=== PATIENT | female | born 1960 | race Caucasian/White ===

== ENCOUNTER 2017-01-30 04:47 | Emergency (ER) | payer OTHER ==
[2017-01-30] MEDS ORDERED: AMOXIL 500 MG PO ONE (05:13)
--- NOTE | 2017-01-30 05:19 | ERPHSYRPT ---
- History of Present Illness Time Seen by Provider: 01/30/17 05:05 Source: patient Exam Limitations: clinical condition Patient Subjective Stated Complaint: sore thrtoat and ear pain since 0100 Triage Nursing Assessment: alert and oriented with c/o sore throat and bilateral ear pain starting at 0100. has hx same every year. non productive cough Physician History: PATIENT COMPLAINS OF SORETHROAT SINCE 1AM TODAY, DENIES ASSOCIATED FEVER OR CHILLS OR DYSPNEA. DENIES DIFFICULTY BREATHING OR SWALLOWING. Timing/Duration: today Cough Quality/Degree: no cough Possible Cause: occasional episodes Modifying Factors: Improves With: nothing Associated Symptoms: denies symptoms International travel in last 2 weeks: No Allergies/Adverse Reactions: No Known Drug Allergies Allergy (Unverified 01/30/17 05:23) - Review of Systems Constitutional: No Fever, No Chills Ears, Nose, & Throat: Throat Pain Respiratory: No Symptoms Cardiac: No Symptoms Abdominal/Gastrointestinal: No Symptoms Genitourinary Symptoms: No Symptoms Musculoskeletal: No Symptoms Psychological: No Symptoms Endocrine: No Symptoms - Past Medical History Pertinent Past Medical History: Yes Neurological History: No Pertinent History Cardiac History: No Pertinent History Respiratory History: No Pertinent History Endocrine Medical History: Diabetes Type II - Past Surgical History Past Surgical History: No - Social History Smoking Status: Never smoker Exposure to second hand smoke: No Drug Use: none Patient Lives Alone: No - Nursing Vital Signs Nursing Vital Signs: Initial Vital Signs Temperature 97.8 F 01/30/17 04:55 Pulse Rate 88 01/30/17 04:55 Respiratory Rate 16 01/30/17 04:55 Blood Pressure 149/97 01/30/17 04:55 O2 Sat by Pulse Oximetry 98 01/30/17 04:55 Pain Scale Pain Intensity 6 - Physical Exam General Appearance: no apparent distress, alert Eye Exam: PERRL/EOMI, eyes nml inspection Ears, Nose, Throat Exam: pharyngeal erythema (NO EXUDATE) Neck Exam: normal inspection, lymphadenopathy Respiratory Exam: normal breath sounds, lungs clear, No respiratory distress Cardiovascular Exam: regular rate/rhythm SpO2 Interpretation: airway management int. SpO2: 98 Oxygen Delivery: Room Air Ordered Tests: Active Orders 24 hr Category Date Time Status CULTURE, THROAT Stat Lab 01/30/17 05:32 Received STREP SCREEN-BETA A Stat Lab 01/30/17 05:32 Completed Medication Summary Discontinued Medications Generic Name Dose Route Start Last Admin Trade Name Waqas PRN Reason Stop Dose Admin Amoxicillin 500 mg 01/30/17 05:13 01/30/17 05:29 Amoxil 500 Mg PO 01/30/17 05:14 500 mg STAT ONE Administration Amoxicillin Confirm 01/30/17 05:28 Amoxil 500 Mg Administered 01/30/17 05:29 Dose 500 mg .ROUTE .STK-MED ONE Lab/Rad Data: Laboratory Results 01/30/17 Range/Units 05:32 Streptococcus Screen NEGATIVE (Negative) - Progress Progress Note: 01/30/17 05:16 ADMINISTERED AMOXICILLIN 500MG ORALLY Counseled pt/family regarding: lab results, diagnosis - Departure Time of Disposition: 05:40 Departure Disposition: Home Clinical Impression: ACUTE PHARYNGITIS Condition: Stable Critical Care Time: No Referrals: MONICO BRIONES [Primary Care Provider] - Additional Instructions: ANTIBIOTIC AUGMENTIN 875MG TWICE DAILY FOR 10 DAYS. TYLENOL OR MOTRIN NEEDED FOR PAIN OR FEVER. CONSULT YOUR PRIMARY CARE PHYSICIAN FOR FOLLOWUP IN 1 WEEK.
[2017-01-30] MEDS ORDERED: AMOXIL 500 MG ONE (05:28)
[2017-01-30 05:46] VITALS: BP 148/78; PULSE 80; O2SAT 99
== END 2017-01-30 05:45 | disposition home or self-care (01) ==
LOC: ED 04:47
DX: J02.9 Acute pharyngitis, unspecified (principal)
CPT/HCPCS: 87070; 87430; 99283; A9270-GY

== ENCOUNTER 2017-11-14 20:31 | Emergency (ER) | payer OTHER ==
--- NOTE | 2017-11-14 21:08 | ERPHSYRPT ---
- History of Present Illness Time Seen by Provider: 11/14/17 21:04 Source: patient, family Exam Limitations: no limitations Patient Subjective Stated Complaint: pt states she has been having a lot of stress recently and called her son nicci to talk. states she said to him that she is stressed and said "i dont know if i should run my car into a ditch or jump off a bridge." pt states she was just trying to vent and has no intention of hurting herself. denies any suicidal ideation or plan. Triage Nursing Assessment: pt arrive with law enforcement, willing. pt alert and oriented. answers questions approp. pt ambulatory with steady gait noted. respirations nonlabored with lungs cta. pt calm and cooperative. Physician History: pt states she has been having a lot of stress recently and called her son nicci to talk. states she said to him that she is stressed and said "i dont know if i should run my car into a ditch or jump off a bridge." pt states she was just trying to vent and has no intention of hurting herself. denies any suicidal ideation or plan. Denies any other symptoms Timing/Duration: today Allergies/Adverse Reactions: No Known Drug Allergies Allergy (Unverified 01/30/17 05:23) Hx Tetanus, Diphtheria Vaccination/Date Given: Yes Hx Influenza Vaccination/Date Given: No Hx Pneumococcal Vaccination/Date Given: No Immunizations Up to Date: Yes - Review of Systems Constitutional: No Fever, No Chills Eyes: No Symptoms Ears, Nose, & Throat: No Symptoms Respiratory: No Cough, No Dyspnea Cardiac: No Chest Pain, No Edema, No Syncope Abdominal/Gastrointestinal: No Abdominal Pain, No Nausea, No Vomiting, No Diarrhea Genitourinary Symptoms: No Dysuria Musculoskeletal: No Back Pain, No Neck Pain Skin: No Rash Neurological: No Dizziness, No Focal Weakness, No Sensory Changes Psychological: Anxiety, Depression, Emotional Lability Endocrine: No Symptoms All Other Systems: Reviewed and Negative - Past Medical History Pertinent Past Medical History: Yes Neurological History: No Pertinent History Cardiac History: No Pertinent History, Hypertension Respiratory History: No Pertinent History Endocrine Medical History: Diabetes Type II - Past Surgical History Past Surgical History: Yes Musculoskeletal: Orthopedic Surgery Female Surgical History: Section - Social History Smoking Status: Never smoker Exposure to second hand smoke: No Drug Use: none Patient Lives Alone: No - Nursing Vital Signs Nursing Vital Signs: Initial Vital Signs Temperature 99.6 F 11/14/17 20:35 Pulse Rate 110 H 11/14/17 20:35 Respiratory Rate 18 11/14/17 20:35 Blood Pressure 189/110 11/14/17 20:35 O2 Sat by Pulse Oximetry 96 11/14/17 20:35 Pain Scale Pain Intensity 4 - Physical Exam General Appearance: no apparent distress, alert Eye Exam: PERRL/EOMI, eyes nml inspection Ears, Nose, Throat Exam: normal ENT inspection, TMs normal, pharynx normal, moist mucous membranes Neck Exam: normal inspection, non-tender, supple, full range of motion Respiratory Exam: normal breath sounds, lungs clear, No respiratory distress Cardiovascular Exam: regular rate/rhythm, normal heart sounds, normal peripheral pulses Gastrointestinal/Abdomen Exam: soft, normal bowel sounds, No tenderness, No mass Back Exam: normal inspection, normal range of motion, No CVA tenderness, No vertebral tenderness Extremity Exam: normal inspection, normal range of motion, pelvis stable Neurologic Exam: alert, oriented x 3, cooperative, normal mood/affect, nml cerebellar function, nml station & gait, sensation nml, No motor deficits Skin Exam: normal color, warm, dry, No rash Lymphatic Exam: No adenopathy SpO2: 96 Oxygen Delivery: Room Air - Course Nursing assessment & vital signs reviewed: Yes Ordered Tests: Active Orders 24 hr Category Date Time Status EKG-ER Only STAT Care 11/14/17 21:08 Active CBC W DIFF Stat Lab 11/14/17 21:23 Completed CMP Stat Lab 11/14/17 21:23 Completed CULTURE,URINE Stat Lab 11/14/17 21:23 Received ETHYL ALCOHOL Stat Lab 11/14/17 21:23 Completed TROPONIN Stat Lab 11/14/17 21:23 Completed UA W/ MICROSCOPIC Stat Lab 11/14/17 21:23 Completed Urine Triage Profile Stat Lab 11/14/17 21:23 Completed Medication Summary Discontinued Medications Generic Name Dose Route Start Last Admin Trade Name Alanq PRN Reason Stop Dose Admin Ciprofloxacin 500 mg 11/14/17 22:00 11/14/17 22:21 Cipro 500 Mg PO 11/14/17 22:01 500 mg STAT ONE Administration Ciprofloxacin Confirm 11/14/17 22:21 Cipro 500 Mg Administered 11/14/17 22:22 Dose 500 mg .ROUTE .STK-MED ONE Lab/Rad Data: Laboratory Result Diagrams 11/14/17 21:23 11/14/17 21:23 Laboratory Results 11/14/17 11/14/17 11/14/17 Range/Units 21:23 21:23 21:23 WBC (4.0-10.5) K/mm3 RBC (4.1-5.4) M/mm3 Hgb (12.0-16.0) gm/dl Hct (35-47) % MCV (78-100) fl MCH (26-32) pg MCHC (32-36) g/dl RDW (11.5-14.0) % Plt Count (150-450) K/mm3 MPV (6-9.5) fl Gran % (36.0-66.0) % Eos # (Auto) (0-0.5) Absolute Lymphs (auto) (1.0-4.6) Absolute Monos (auto) (0.0-1.3) Lymphocytes % (24.0-44.0) % Monocytes % (0.0-12.0) % Eosinophils % (0.00-5.0) % Basophils % (0.0-0.4) % Absolute Granulocytes (1.4-6.9) Basophils # (0-0.4) Sodium 142 (137-145) mmol/L Potassium 3.7 (3.5-5.1) mmol/L Chloride 104 (98-107) mmol/L Carbon Dioxide 28 (22-30) mmol/L Anion Gap 14.0 (5-15) MEQ/L BUN 10 (7-17) mg/dL Creatinine 0.62 (0.52-1.04) mg/dL Estimated GFR > 60.0 ML/MIN Glucose 125 H (74-106) mg/dL Calcium 9.4 (8.4-10.2) mg/dL Total Bilirubin 0.40 (0.2-1.3) mg/dL AST 25 (14-36) U/L ALT 28 (0-35) U/L Alkaline Phosphatase 201 H (38-126) U/L Troponin I < 0.012 (0.000-0.034) ng/mL Serum Total Protein 8.5 H (6.3-8.2) g/dL Albumin 4.3 (3.5-5.0) g/dL Ur Collection Type VOID Urine Color YELLOW (YELLOW) Urine Appearance CLEAR (CLEAR) Urine pH 7.0 (5-6) Ur Specific [place] 1.010 (1.005-1.025) Urine Protein TRACE (Negative) Urine Ketones NEGATIVE (NEGATIVE) Urine Blood NEGATIVE (0-5) Mathieu/ul Urine Nitrite NEGATIVE (NEGATIVE) Urine Bilirubin NEGATIVE (NEGATIVE) Urine Urobilinogen NORMAL (0-1) mg/dL Ur Leukocyte Esterase 1+ (NEGATIVE) Urine Microscopic RBC 2-5 (0-2) /HPF Urine Microscopic WBC 15-25 (0-5) /HPF Ur Epithelial Cells MODERATE (FEW) /HPF Urine Bacteria MODERATE (NEGATIVE) /HPF Urine Mucus MODERATE (NEGATIVE) /HPF Urine Culture Reflexed YES (NO) Urine Glucose NEGATIVE (NEGATIVE) mg/dL Urine Opiates Level NEGATIVE (NEGATIVE) Ur Methadone NEGATIVE (NEGATIVE) Urine Barbiturates NEGATIVE (NEGATIVE) Ur Phencyclidine (PCP) NEGATIVE (NEGATIVE) Urine Amphetamine NEGATIVE (NEGATIVE) U Benzodiazepine Level NEGATIVE (NEGATIVE) Urine Cocaine NEGATIVE (NEGATIVE) Urine Marijuana (THC) NEGATIVE (NEGATIVE) Ethyl Alcohol < 10 (0-10) mg/dL Specimen Received 11/14/17212411/14/17 Range/Units 21:23 WBC 10.9 H (4.0-10.5) K/mm3 RBC 4.77 (4.1-5.4) M/mm3 Hgb 13.2 (12.0-16.0) gm/dl Hct 40.0 (35-47) % MCV 83.9 (78-100) fl MCH 27.7 (26-32) pg MCHC 33.0 (32-36) g/dl RDW 14.5 H (11.5-14.0) % Plt Count 298 (150-450) K/mm3 MPV 8.8 (6-9.5) fl Gran % 69.2 H (36.0-66.0) % Eos # (Auto) 0.54 H (0-0.5) Absolute Lymphs (auto) 1.86 (1.0-4.6) Absolute Monos (auto) 0.88 (0.0-1.3) Lymphocytes % 17.1 L (24.0-44.0) % Monocytes % 8.1 (0.0-12.0) % Eosinophils % 5.0 (0.00-5.0) % Basophils % 0.6 (0.0-0.4) % Absolute Granulocytes 7.53 H (1.4-6.9) Basophils # 0.06 (0-0.4) Sodium (137-145) mmol/L Potassium (3.5-5.1) mmol/L Chloride (98-107) mmol/L Carbon Dioxide (22-30) mmol/L Anion Gap (5-15) MEQ/L BUN (7-17) mg/dL Creatinine (0.52-1.04) mg/dL Estimated GFR ML/MIN Glucose (74-106) mg/dL Calcium (8.4-10.2) mg/dL Total Bilirubin (0.2-1.3) mg/dL AST (14-36) U/L ALT (0-35) U/L Alkaline Phosphatase (38-126) U/L Troponin I (0.000-0.034) ng/mL Serum Total Protein (6.3-8.2) g/dL Albumin (3.5-5.0) g/dL Ur Collection Type Urine Color (YELLOW) Urine Appearance (CLEAR) Urine pH (5-6) Ur Specific [place] (1.005-1.025) Urine Protein (Negative) Urine Ketones (NEGATIVE) Urine Blood (0-5) Mathieu/ul Urine Nitrite (NEGATIVE) Urine Bilirubin (NEGATIVE) Urine Urobilinogen (0-1) mg/dL Ur Leukocyte Esterase (NEGATIVE) Urine Microscopic RBC (0-2) /HPF Urine Microscopic WBC (0-5) /HPF Ur Epithelial Cells (FEW) /HPF Urine Bacteria (NEGATIVE) /HPF Urine Mucus (NEGATIVE) /HPF Urine Culture Reflexed (NO) Urine Glucose (NEGATIVE) mg/dL Urine Opiates Level (NEGATIVE) Ur Methadone (NEGATIVE) Urine Barbiturates (NEGATIVE) Ur Phencyclidine (PCP) (NEGATIVE) Urine Amphetamine (NEGATIVE) U Benzodiazepine Level (NEGATIVE) Urine Cocaine (NEGATIVE) Urine Marijuana (THC) (NEGATIVE) Ethyl Alcohol (0-10) mg/dL Specimen Received - Departure Time of Disposition: 23:35 Departure Disposition: Home Clinical Impression: Acute stress reaction UTI (urinary tract infection) Qualifiers: Urinary tract infection type: acute pyelonephritis Qualified Code(s): N10 - Acute pyelonephritis HTN (hypertension) Qualifiers: Hypertension type: essential hypertension Qualified Code(s): I10 - Essential ( primary) hypertension Condition: Stable Critical Care Time: Yes Critical Care Time(excluding separately billable procedures): 30-74 minutes Referrals: MONICO BRIONES [Primary Care Provider] - Instructions: Stress, Social Anxiety Disorder, Urinary Tract Infections in Adults Additional Instructions: ANEL WALTERS was seen on 11/14/17 n the Emergency Room. At that time you were treated for an emergent condition, during your visit Laboratory, Radiology and/ or other procedures may have been ordered. It is very important that you follow- up with your Primary Care Physician MONICO BRIONES within the next 24-48 hours to review your Emergency Room visit and the final results of testing that was ordered. Some test results such as Urine Cultures, Blood Cultures, and other cultures if ordered will not be finalized for 24-48 hours. If you do not have a Primary Care Provider please call the medical records department at [phone] to obtain a copy of your results or you may sign into our patient portal to obtain these results by visiting us @ [email or web address] and completing the following steps: 1. Click on the Patient Portal link 2. Click the Patient Self Enrollment Link to complete the enrollment form and entering your 3. Once the enrollment form is completed you will receive an email with a temporary ID and password at the email address you provided. 4. Next choose a user name and password. Your user name must be at least 4 characters long and your password must be at least 4 characters long. 5. Choose a security question from the list and provide your answer to the question. If you already have signed into the Health Portal you may access your Health Care Information 13/10 by the following steps: 1. Login to our website @ [email or web address] 2. Enter your original user name and password. FAQS The [facility] Health Portal is an online tool that contains your Lab Results, Radiology Reports, Visit History, Discharge Instructions and Health Summary Lab and Radiology Results will not be available for 72 hours on the portal. The Portal is a secure site, passwords are encryted and URLs are re-written so they cannot be copied and pasted. You and authorized family members are the only ones who can access your Portal. Also there is a timeout feature that protects your information if you leave the Portal page open. If you have technical difficulty please use the Contact Us link on the page this will allow you to submit any questions you have regarding the Portal or you may contact the Medical Record Department at [phone]. Prescriptions: Ciprofloxacin [Cipro 500 MG] 500 mg PO BIDAC #20 tablet - Nursing Vital Signs Nursing Vital Signs: Initial Vital Signs Temperature 99.6 F 11/14/17 20:35 Pulse Rate 110 H 11/14/17 20:35 Respiratory Rate 18 11/14/17 20:35 Blood Pressure 189/110 11/14/17 20:35 O2 Sat by Pulse Oximetry 96 11/14/17 20:35 Pain Scale Pain Intensity 4 - Physical Exam General Appearance: no apparent distress Eyes, Ears, Nose, Throat Exam: normal ENT inspection, moist mucous membranes Neck Exam: normal inspection, non-tender, supple Respiratory Exam: normal breath sounds, lungs clear, No respiratory distress Cardiovascular Exam: regular rate/rhythm, No edema Gastrointestinal/Abdominal Exam: soft, No tenderness, No distention Extremities Exam: normal inspection, normal range of motion, No evidence of injury, No edema Current Suicidality: denies suicide plan Neurological Exam: alert, refuse collector II-XII nml as tested, oriented x 3 Appearance: appropriate appearance Behavior/Eye Contact/Speech: alert & cooperative Thoughts/Hallucinations: normal thought pattern, No auditory hallucinations, No tactile hallucinations Skin Exam: normal color, warm, dry, No rash SpO2: 96 Oxygen Delivery: Room Air
[2017-11-14 21:24] LABS: BASOPHIL % 0.6 % (0.0-0.4); Basophil (Absolute #) 0.06 (0-0.4); Eosinophil (Absolute #) 0.54 (0-0.5); Granulocyte Absolute (ANC) 7.53 (1.4-6.9); Granulocytes % 69.2 % (36.0-66.0); Hemoglobin 13.2 gm/dl (12.0-16.0); Lymphocyte (Absolute #) 1.86 (1.0-4.6); Lymphocytes % 17.1 % (24.0-44.0); Mean Cell Volume 83.9 fl (78-100); Mean Corpuscular Hemoglobin 27.7 pg (26-32); Mean Platelet Volume 8.8 fl (6-9.5); Monocyte (Absolute #) 0.88 (0.0-1.3); Monocytes % 8.1 % (0.0-12.0); Platelet Count 298 K/mm3 (150-450); Red Blood Count 4.77 M/mm3 (4.1-5.4); Red Cell Distribution Width 14.5 % (11.5-14.0); White Blood Count 10.9 K/mm3 (4.0-10.5)
[2017-11-14 21:38] LABS: Appearance CLEAR (CLEAR); Bacteria MODERATE /HPF (NEGATIVE); Bilirubin NEGATIVE (NEGATIVE); Blood NEGATIVE Ery/ul (0-5); Epithelial Cells MODERATE /HPF (FEW); Glucose NEGATIVE (NEGATIVE); Ketones NEGATIVE (NEGATIVE); Leukocyte Esterase 1+ (NEGATIVE); Mucus MODERATE /HPF (NEGATIVE); Nitrite NEGATIVE (NEGATIVE); Protein,Urine Dip TRACE (Negative); Urobilinogen NORMAL mg/dL (0-1); WBC 15-25 /HPF (0-5)
[2017-11-14 21:42] LABS: Amphetamine,Urine NEGATIVE (NEGATIVE); Barbiturate,Urine NEGATIVE (NEGATIVE); Benzodiazepine,Urine NEGATIVE (NEGATIVE); Cocaine,Urine NEGATIVE (NEGATIVE); Methadone,Urine NEGATIVE (NEGATIVE); Opiate,Urine NEGATIVE (NEGATIVE); PCP,Urine NEGATIVE (NEGATIVE); THC,Urine NEGATIVE (NEGATIVE)
[2017-11-14 21:53] LABS: ALBUMIN 4.3 g/dL (3.5-5.0); ALKALINE PHOSPHATASE 201 U/L (38-126); BLOOD UREA NITROGEN 10 mg/dL (7-17); CHLORIDE 104 mmol/L (98-107); Calcium 9.4 mg/dL (8.4-10.2); Carbon Dioxide 28 mmol/L (22-30); Creatinine 1 0.62 mg/dL (0.52-1.04); Glucose 125 mg/dL (74-106); Potassium 3.7 mmol/L (3.5-5.1); SGOT/AST 25 U/L (14-36); SGPT/ALT 28 U/L (0-35); SODIUM 142 mmol/L (137-145); Total Protein 8.5 g/dL (6.3-8.2)
[2017-11-14 21:56] LABS: ETHYL ALCOHOL < 10 mg/dL (0-10); TROPONIN < 0.012 ng/mL (0.000-0.034)
[2017-11-14] MEDS ORDERED: Cipro 500 MG PO ONE (22:00)
[2017-11-14] MEDS ORDERED: Cipro 500 MG ONE (22:21)
[2017-11-14 22:46] VITALS: PULSE 84
[2017-11-14 23:50] VITALS: BP 166/89; O2SAT 98
== END 2017-11-14 23:48 | disposition home or self-care (01) ==
LOC: ED 20:31
DX: F43.0 Acute stress reaction (principal); N39.0 Urinary tract infection, site not specified; I10 Essential (primary) hypertension
CPT/HCPCS: 36415; 80053; 80307; 81000; 84484; 85025; 87086; 93005; 99284; A9270-GY; G0480

== ENCOUNTER 2018-03-08 17:05 | Emergency (ER) | payer OTHER ==
[2018-03-08 17:56] LABS: Appearance CLOUDY (CLEAR); Bilirubin NEGATIVE (NEGATIVE); Blood LARGE Ery/ul (0-5); Glucose >=500 mg/dL (NEGATIVE); Ketones TRACE (NEGATIVE); Leukocyte Esterase TRACE (NEGATIVE); Nitrite NEGATIVE (NEGATIVE); Protein,Urine Dip 100 (Negative); Specific Gravity 1.025 (1.005-1.025); Urobilinogen NEGATIVE mg/dL (0-1)
[2018-03-08 19:09] VITALS: BP 183/99; PULSE 94
[2018-03-08 19:17] VITALS: O2SAT 98
--- NOTE | 2018-03-08 19:17 | ERPHSYRPT ---
- History of Present Illness Time Seen by Provider: 03/08/18 19:05 Historian: patient, family (mother) Exam Limitations: no limitations Patient Subjective Stated Complaint: Pt states "I think I have a UTI." Triage Nursing Assessment: Pt alert and oriented x 3, skin pwd. Pt ambulates with an upright steady gait, able to speak in clear full sentences. PT in no apparent respiratory distress. Physician History: The patient is a 58-year-old female with her mother complaining of lower abdominal pain with sometimes pain into her right low back that began at 2 PM this afternoon today. She wants to be checked for UTI. She denies fever or chills. She denies urinary urgency or discomfort. She denies vomiting or diarrhea. However, when asked, she had some dry heaves when the pain begins to hurt her too much. She specifically refuses any IV or needles. She does not want any lab work except a UA. Her past medical history is significant for high cholesterol, DM, HTN, and GERD. She's had C-sections and wrist surgery. Timing/Duration: today, hour(s) (6), intermittent, worse Activities at Onset: none Quality: aching Abdominal Pain Onset Location: suprapubic Pain Radiation: back (low) Severity of Pain-Max: moderate Severity of Pain-Current: moderate Modifying Factors: Improves With: nothing Associated Symptoms: back, No diarrhea, No loss of appetite, No nausea, No vomiting Previous symptoms: no prior history Allergies/Adverse Reactions: No Known Drug Allergies Allergy (Verified 03/08/18 17:23) Home Medications: Atorvastatin Calcium [Lipitor] 40 mg PO DAILY 03/08/18 [History] Glipizide [Glipizide Xl] 5 mg PO DAILY 03/08/18 [History] Lisinopril 10 mg [Zestril 10 MG] 10 mg PO DAILY 03/08/18 [History] Metformin HCl 500 mg [Glucophage 500 MG] 1,000 mg PO DAILY 03/08/18 [ History] Omeprazole 20 mg PO DAILY 03/08/18 [History] Hx Tetanus, Diphtheria Vaccination/Date Given: Yes Hx Influenza Vaccination/Date Given: Yes Hx Pneumococcal Vaccination/Date Given: No Immunizations Up to Date: Yes - Review of Systems Constitutional: No Fever, No Chills Eyes: No Symptoms Ears, Nose, & Throat: No Symptoms Respiratory: No Cough, No Dyspnea Cardiac: No Chest Pain, No Edema, No Syncope Abdominal/Gastrointestinal: Abdominal Pain Genitourinary Symptoms: No Dysuria Musculoskeletal: No Back Pain, No Neck Pain Skin: No Rash Neurological: No Dizziness, No Focal Weakness, No Sensory Changes Psychological: No Symptoms Endocrine: No Symptoms Hematologic/Lymphatic: No Symptoms Immunological/Allergic: No Symptoms All Other Systems: Reviewed and Negative - Past Medical History Pertinent Past Medical History: Yes Neurological History: No Pertinent History Cardiac History: No Pertinent History, Hypertension Respiratory History: No Pertinent History Endocrine Medical History: Diabetes Type II - Past Surgical History Past Surgical History: Yes Musculoskeletal: Orthopedic Surgery Female Surgical History: Section - Social History Smoking Status: Never smoker Exposure to second hand smoke: No Drug Use: none Patient Lives Alone: No - Female History Hx Now: No - Nursing Vital Signs Nursing Vital Signs: Initial Vital Signs Temperature 99.1 F 03/08/18 17:19 Pulse Rate 92 H 03/08/18 17:19 Respiratory Rate 171 H 03/08/18 17:19 Blood Pressure 171/83 03/08/18 17:19 O2 Sat by Pulse Oximetry 98 18 17:19 Pain Scale Pain Intensity 4 - Physical Exam General Appearance: mild distress, obese Eye Exam: PERRL/EOMI, eyes nml inspection Ears, Nose, Throat Exam: normal ENT inspection, pharynx normal, moist mucous membranes Neck Exam: normal inspection, non-tender, supple, full range of motion Respiratory Exam: normal breath sounds, lungs clear, No respiratory distress Cardiovascular Exam: regular rate/rhythm, normal heart sounds Gastrointestinal/Abdomen Exam: tenderness (suprapubic) Pelvic Exam: not done Rectal Exam: not done Back Exam: muscle spasm (right lumbar paraspinous) Extremity Exam: normal inspection, normal range of motion, pelvis stable Neurologic Exam: alert, oriented x 3, cooperative, normal mood/affect, nml cerebellar function, sensation nml, No motor deficits Skin Exam: normal color, warm, dry SpO2 Interpretation: normal SpO2: 98 Oxygen Delivery: Room Air Ordered Tests: Active Orders 24 hr Category Date Time Status Clean Catch Urine Specimen STAT Care 03/08/18 17:27 Active CULTURE,URINE Stat Lab 03/08/18 17:27 Received UA W/RFX UR CULTURE Stat Lab 03/08/18 17:27 Completed Lab/Rad Data: Laboratory Results 03/08/18 Range/Units 17:27 Urine Color YELLOW (YELLOW) Urine Appearance CLOUDY (CLEAR) Urine pH 5.0 (5-6) Ur Specific [place] 1.025 (1.005-1.025) Urine Protein 100 (Negative) Urine Ketones TRACE (NEGATIVE) Urine Blood LARGE (0-5) Mathieu/ul Urine Nitrite NEGATIVE (NEGATIVE) Urine Bilirubin NEGATIVE (NEGATIVE) Urine Urobilinogen NEGATIVE (0-1) mg/dL Ur Leukocyte Esterase TRACE (NEGATIVE) Urine WBC (Auto) 51-100 (0-5) /HPF Urine RBC (Auto) >101 (0-2) /HPF U Epithel Cells (Auto) RARE (FEW) /HPF Urine Bacteria (Auto) FEW (NEGATIVE) /HPF Urine Mucus (Auto) MANY (NEGATIVE) /HPF Urine Yeast (Budding) Moderate (NEGATIVE) /HPF Urine Culture Reflexed YES (NO) Urine Glucose >=500 (NEGATIVE) mg/dL - Progress Progress Note: 03/08/18 19:24 I had a discussion with the patient and her mother about the possibility of a kidney stone and that I would like to draw blood and do a CT scan. The patient adamantly refused blood work or CT scan. The patient wants oral antibiotics and oral pain medicines only and she wants this only for a possible UTI. Her mother even try to convince her to accept my recommendations but the patient refused. I wanted to give the patient rocephin 1 gm IM but pt refused. Counseled pt/family regarding: lab results, diagnosis, need for follow-up - Departure Time of Disposition: 19:25 Departure Disposition: Home Clinical Impression: UTI (urinary tract infection), Hematuria Condition: Stable Critical Care Time: No Referrals: MONICO BRIONES [Primary Care Provider] - Additional Instructions: The urinalysis showed white cells, red blood cells, and bacteria. I wanted to do further testing to determine if you had a kidney stone but you refused. I am treating your for a UTI at your request. Take Keflex 500 mg 4 times a day for 7 days. Take Ackworth one tablet every 4-6 hours as needed for pain. Followup with your primary medical doctor in 2 days. Prescriptions: Cephalexin Mh 500 mg [Keflex 500 mg] 1 cap PO QID #28 capsule Hydrocodone/APAP 5/325 [Ack[place] 5/325 mg] 1 each PO Q4-6HPRN PRN #6 tablet MDD 6 PRN Reason: Pain
== END 2018-03-08 19:38 | disposition home or self-care (01) ==
LOC: ED 17:05
DX: N39.0 Urinary tract infection, site not specified (principal); R31.9 Hematuria, unspecified; Z79.899 Other long term (current) drug therapy
CPT/HCPCS: 81001; 87086; 99283

== ENCOUNTER 2018-08-05 02:20 | Emergency (ER) | payer OTHER ==
[2018-08-05] MEDS ORDERED: NORCO 5/325 MG ONE (04:01)
--- NOTE | 2018-08-05 09:13 | XRAY ---
Indication: Pain following fall. Comparison: None 3 views of the right knee demonstrates mild osteopenia and moderate/advanced tricompartmental degenerative changes greatest involving patellofemoral compartment. Large chunky ossification lateral to the knee joint without donor site either degenerative versus old injury. No other bony, articular, or soft tissue abnormalities.
== END 2018-08-05 04:12 | disposition home or self-care (01) ==
LOC: ED 02:20
DX: M25.561 Pain in right knee (principal); W01.198A Fall on same level from slipping, tripping and stumbling with subsequent striking against other object, initial encounter; M25.461 Effusion, right knee; E11.9 Type 2 diabetes mellitus without complications; Z79.4 Long term (current) use of insulin
CPT/HCPCS: 73562; 99282; L1830; A9270-GY

== ENCOUNTER 2018-11-08 23:33 | Emergency (ER) | payer OTHER ==
[2018-11-08 23:48] VITALS: O2SAT 98
[2018-11-08] MEDS ORDERED: PERCOCET TABLET 5/325MG PO STA (23:57)
--- NOTE | 2018-11-09 00:04 | ERPHSYRPT ---
- History of Present Illness Time Seen by Provider: 11/08/18 23:50 Source: patient, family Exam Limitations: no limitations Physician History: 58 y/o white female presents with left knee, lower leg and ankle pain following a fall she sustained [id number]. pt tripped in her yard when foot caught in hole while walking. no head injury Method of Injury: fell, twisted Occurred: just prior to arrival Quality: aching, throbbing Severity of Pain-Max: mild Severity of Pain-Current: mild Lower Extremities Pain: leg: left, knee: left, ankle: left Modifying Factors: Improves With: movement Allergies/Adverse Reactions: No Known Drug Allergies Allergy (Verified 03/08/18 17:23) Home Medications: Atorvastatin Calcium [Lipitor] 40 mg PO DAILY 03/08/18 [History] Glipizide [Glipizide Xl] 5 mg PO DAILY 03/08/18 [History] Lisinopril 10 mg [Zestril 10 MG] 10 mg PO DAILY 03/08/18 [History] Metformin HCl 500 mg [Glucophage 500 MG] 500 mg PO DAILY 03/08/18 [History ] Omeprazole 20 mg PO DAILY 03/08/18 [History] Hx Tetanus, Diphtheria Vaccination/Date Given: Yes Hx Influenza Vaccination/Date Given: Yes Hx Pneumococcal Vaccination/Date Given: No - Review of Systems Constitutional: No Symptoms Eyes: No Symptoms Ears, Nose, & Throat: No Symptoms Respiratory: No Symptoms Cardiac: No Symptoms Abdominal/Gastrointestinal: No Symptoms Genitourinary Symptoms: No Symptoms Musculoskeletal: Fall, Injury (left lower ext) Skin: No Symptoms Neurological: No Symptoms Psychological: No Symptoms Endocrine: No Symptoms Hematologic/Lymphatic: No Symptoms Immunological/Allergic: No Symptoms All Other Systems: Reviewed and Negative - Past Medical History Pertinent Past Medical History: Yes Neurological History: No Pertinent History Cardiac History: No Pertinent History, Hypertension Respiratory History: No Pertinent History Endocrine Medical History: Diabetes Type II Musculoskeletal History: No Pertinent History GI Medical History: No Pertinent History History: No Pertinent History Psycho-Social History: No Pertinent History Female Reproductive Disorders: No Pertinent History - Past Surgical History Past Surgical History: Yes Neuro Surgical History: No Pertinent History Cardiac: No Pertinent History Respiratory: No Pertinent History Gastrointestinal: No Pertinent History Genitourinary: No Pertinent History Musculoskeletal: Orthopedic Surgery Female Surgical History: Section - Social History Smoking Status: Never smoker Exposure to second hand smoke: No Drug Use: none Patient Lives Alone: No - Nursing Vital Signs Nursing Vital Signs: Initial Vital Signs Temperature 99.3 F 11/08/18 23:47 Pulse Rate 83 11/08/18 23:47 Respiratory Rate 20 11/08/18 23:47 Blood Pressure 174/85 11/08/18 23:47 O2 Sat by Pulse Oximetry 98 11/08/18 23:47 Pain Scale Pain Intensity 7 - Physical Exam General Appearance: no apparent distress, alert, anxiety Eyes, Ears, Nose, Throat Exam: normal ENT inspection, moist mucous membranes Neck Exam: normal inspection, non-tender, supple, full range of motion Cardiovascular/Respiratory Exam: chest non-tender Gastrointestinal/Abdominal Exam: non-tender Back Exam: normal inspection, normal range of motion, No CVA tenderness, No vertebral tenderness Hips Exam: bilateral: non-tender, normal inspection, normal range of motion, no evidence of injury Legs Exam: right leg: non-tender, left leg: soft tissue tenderness, bilateral leg: normal inspection, normal range of motion, no evidence of injury Knees Exam: right knee: non-tender, normal inspection, normal range of motion, no evidence of injury, left knee: soft tissue tenderness Ankle Exam: right ankle: non-tender, normal inspection, normal range of motion, no evidence of injury, left ankle: soft tissue tenderness Foot Exam: bilateral foot: non-tender, normal inspection, normal range of motion , no evidence of injury Neuro/Tendon Exam: normal sensation, normal motor functions, normal tendon functions Mental Status Exam: alert, oriented x 3, cooperative Skin Exam: normal color, warm, dry SpO2 Interpretation: normal SpO2: 98 O2 Delivery: Room Air Ordered Tests: Active Orders 24 hr Category Date Time Status ANKLE (3 VIEWS) Stat Exams 11/09/18 00:03 Taken KNEE (1 OR 2 VIEW) Stat Exams 11/09/18 00:03 Taken LOWER LEG Stat Exams 11/09/18 00:03 Taken Medication Summary Discontinued Medications Generic Name Dose Route Start Last Admin Trade Name Freq PRN Reason Stop Dose Admin Oxycodone/Acetaminophen 1 tab 11/08/18 23:57 11/09/18 00:29 Percocet Tablet 5/325mg PO 11/08/18 23:58 1 tab STAT STA Administration Oxycodone/Acetaminophen Confirm 11/09/18 00:29 Percocet Tablet 5/325mg Administered 11/09/18 00:30 Dose 1 tab .ROUTE .STK-MED ONE - Progress Progress: unchanged Progress Note: 11/09/18 00:35 xray left knee, tib-fib and ankle-no acute fx or dislocation Counseled pt/family regarding: diagnosis, need for follow-up, rad results - Departure Departure Disposition: Home Clinical Impression: Fall, Contusion Condition: Stable Critical Care Time: No Referrals: JACINTO ARAGON MD [Primary Care Provider] - Additional Instructions: ice pack to areas 3 times daily for 2 days. use tylenol and ibuprofen. follow up with primary doctor for persistent symptoms. weightbearing as tolerated. Forms: Work/School Release Form
[2018-11-09] MEDS ORDERED: PERCOCET TABLET 5/325MG ONE (00:29)
[2018-11-09 00:50] VITALS: BP 189/85; PULSE 73
--- NOTE | 2018-11-09 09:12 | XRAY ---
Indication: Pain following fall. Comparison: February 18, 2018. 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 No new/acute bony, articular, or soft tissue abnormalities.
--- NOTE | 2018-11-09 09:14 | XRAY ---
Indication: Pain following fall. Comparison: None 3 views of the left ankle demonstrates small heel spurs. No other bony, articular, or soft tissue abnormalities.
--- NOTE | 2018-11-09 09:14 | XRAY ---
Indication: Pain following fall. Comparison: None 2 views of the left lower leg demonstrates knee degenerative changes reported separately. No other bony, articular, or soft tissue abnormalities.
== END 2018-11-09 00:51 | disposition home or self-care (01) ==
LOC: ED 23:33
DX: M25.562 Pain in left knee (principal); M79.662 Pain in left lower leg; M25.572 Pain in left ankle and joints of left foot; T14.8XXA Other injury of unspecified body region, initial encounter; W01.198A Fall on same level from slipping, tripping and stumbling with subsequent striking against other object, initial encounter; Y93.01 Activity, walking, marching and hiking
CPT/HCPCS: 73560; 73590; 73610; 99283; A9270-GY